=== PATIENT | female | born 1950 | race Caucasian/White ===

== ENCOUNTER → 2021-10-12 | Outpatient (CLI) | payer OTHER, MEDICARE ==
[~2021-10-12] MED LIST: Flomax0.4 MG PO; Norco 5-325 Ta1 EACH PO; Zofran Odt4 MG SL
[2021-10-12 14:09] LABS: BASOPHILS ABSOLUTE AUTO 0.07 K/mm3 (0.00-0.23); BASOPHILS PERCENT AUTO 1 % (0-2); EOSINOPHILS ABSOLUTE AUTO 0.11 K/mm3 (0.00-0.68); EOSINOPHILS PERCENT AUTO 2 % (0-6); Hemoglobin 13.7 g/dL (11.5-16.0); IMMATURE GRAN ABSOLUTE AUTO 0.02 K/mm3 (0.00-0.10); IMMATURE GRAN PERCENT AUTO 0 % (0-1); LYMPHOCYTES ABSOLUTE AUTO 1.64 K/mm3 (0.84-5.20); LYMPHOCYTES PERCENT AUTO 31 % (21-46); MONOCYTES ABSOLUTE AUTO 0.57 K/mm3 (0.16-1.47); MONOCYTES PERCENT AUTO 11 % (4-13); Mean Corpuscular HGB 28.3 pg (26.0-34.0); Mean Corpuscular HGB Conc 32.6 g/dL (31.5-36.5); Mean Corpuscular Volume 87 fL (80-100); Mean Platelet Volume 10.4 fL (9.1-12.4); NEUTROPHILS ABSOLUTE AUTO 2.96 K/mm3 (1.96-9.15); NEUTROPHILS PERCENT AUTO 55 % (41-73); Platelet Count 297 K/mm3 (150-400); RDW Coefficient Variation 13.3 % (11.7-14.2); RDW Standard Deviation 42.3 fL (35.1-46.3); Red Blood Cell Count 4.84 M/mm3 (3.80-5.20); White Blood Cell Count 5.37 K/mm3 (4.00-11.30)
[2021-10-12 14:24] LABS: Alanine Aminotransfer (ALT/SGP 48 U/L (12-78); Albumin, Blood 3.9 g/dL (3.4-5.0); Albumin/Globulin Ratio 1.2 (0.8-1.8); Alk Phos 120 U/L (40-126); Anion Gap 11 mmol/L (6-16); Aspartate Aminotrans (AST/SGOT 28 U/L (12-37); Bilirubin, Total 0.5 mg/dL (0.1-1.0); Blood Urea Nitrogen 16 mg/dL (8-24); Bun/Creatinine Ratio 23.2 (12.0-20.0); CO2, Blood 26 mmol/L (21-32); Calcium, Blood 8.8 mg/dL (8.5-10.1); Chloride, Blood 104 mmol/L (98-108); Creatinine, Blood 0.69 mg/dL (0.40-1.00); Globulin, Blood 3.3 g/dL (2.2-4.0); Glomerular Filtration Rate >60 (60-); Glucose, Blood 113 mg/dL (70-99); Potassium, Blood 4.2 mmol/L (3.5-5.5); Sodium, Blood 141 mmol/L (136-145); Total Protein, Blood 7.2 g/dL (6.4-8.2)
== END | disposition home or self-care (01) ==
LOC: LAB SHORT 14:05 → LAB 14:05
PROVIDERS: General Practice
DX: R05.9 Cough, unspecified (principal)
CPT/HCPCS: 80053; 85025

== ENCOUNTER 2023-07-28 23:27 | Emergency (ER) | payer MEDICARE ==
[~2023-07-28] VITALS: Ht 167.6 cm; Wt 99.8 kg
[2023-07-28 23:59] LABS: BASOPHILS ABSOLUTE AUTO 0.09 K/mm3 (0.00-0.23); BASOPHILS PERCENT AUTO 1 % (0-2); EOSINOPHILS ABSOLUTE AUTO 0.13 K/mm3 (0.00-0.68); EOSINOPHILS PERCENT AUTO 1 % (0-6); Hematocrit 43.8 % (33.0-51.0); IMMATURE GRAN ABSOLUTE AUTO 0.04 K/mm3 (0.00-0.10); IMMATURE GRAN PERCENT AUTO 0 % (0-1); LYMPHOCYTES ABSOLUTE AUTO 3.38 K/mm3 (0.84-5.20); LYMPHOCYTES PERCENT AUTO 37 % (21-46); MONOCYTES ABSOLUTE AUTO 0.82 K/mm3 (0.16-1.47); MONOCYTES PERCENT AUTO 9 % (4-13); Mean Corpuscular HGB 28.3 pg (26.0-34.0); Mean Corpuscular Volume 89 fL (80-100); Mean Platelet Volume 10.6 fL (9.1-12.4); NEUTROPHILS ABSOLUTE AUTO 4.71 K/mm3 (1.96-9.15); NEUTROPHILS PERCENT AUTO 51 % (41-73); Platelet Count 322 K/mm3 (150-400); RDW Coefficient Variation 13.6 % (11.7-14.2); RDW Standard Deviation 44.1 fL (35.1-46.3); Red Blood Cell Count 4.95 M/mm3 (3.80-5.20); White Blood Cell Count 9.17 K/mm3 (4.00-11.30)
[2023-07-29 00:15] LABS: Albumin, Blood 3.7 g/dL (3.4-5.0); Bilirubin, Total 0.5 mg/dL (0.1-1.0); Bun/Creatinine Ratio 36.2 (12.0-20.0); Calcium, Blood 9.4 mg/dL (8.5-10.1); Creatinine, Blood 0.72 mg/dL (0.40-1.00); Globulin, Blood 3.7 g/dL (2.2-4.0); Potassium, Blood 4.2 mmol/L (3.5-5.5); Total Protein, Blood 7.4 g/dL (6.4-8.2)
[2023-07-29 01:45] VITALS: BP 151/66
== END 2023-07-29 03:25 | disposition home or self-care (01) ==
LOC: ER 23:27
PROVIDERS: Emergency Medicine
DX: R00.2 Palpitations (principal); R73.9 Hyperglycemia, unspecified
CPT/HCPCS: 71046; 80053; 83880; 84484; 85025; 85379; 93005; 93010; 99284-25

== ENCOUNTER 2024-09-06 06:11 | Day surgery (SDC) | payer MEDICARE ==
[~2024-09-06] VITALS: Ht 167.6 cm; Wt 96.1 kg
[~2024-09-06 06:11] MED LIST changes: +Lactated Ringer's 1,000 ML IV ONE
[2024-09-06] MEDS ORDERED: CeFAZolin Sodium 2,000 MG VIAL ONE (06:20)
[2024-09-06] MEDS ORDERED: Acetaminophen 500 MG Tab ONE (06:20)
[2024-09-06] MEDS ORDERED: IBUP400 PO (06:38)
[2024-09-06] MEDS ORDERED: ACET500 PO (06:38)
[2024-09-06] MEDS ORDERED: Lactated Ringer's 1,000 ML IV ONE (06:43)
[2024-09-06] MEDS ORDERED: Chlorhexidine Mouth Care 15 ML UDC MT SCH (06:50)
[2024-09-06] MEDS ORDERED: Tranexamic Acid 100 ML IV ONE ×2 (07:01→10:28)
[2024-09-06] MEDS ORDERED: OxyCODONE HCL 10 MG TABCR ONE (07:15)
[2024-09-06] MEDS ORDERED: Midazolam HCl 1MG / ML 2ML Vial ONE (07:17)
[2024-09-06] MEDS ORDERED: EPINEPhrine HCl 1 MG/ML 1ML Amp ONE (07:17)
[2024-09-06] MEDS ORDERED: Etomidate 2MG / ML 10ML Vial ONE (07:31)
[2024-09-06] MEDS ORDERED: FentaNYL Citrate 50 MCG/ML 2 ML Injection ONE (07:34)
[2024-09-06] MEDS ORDERED: Ondansetron HCl 2 MG / ML 2ML Vial ONE ×2 (07:50→10:34)
[2024-09-06] MEDS ORDERED: Phenylephrine HCl 10mg/ml 1 ml Vial ONE (07:50)
[2024-09-06] MEDS ORDERED: Dexamethasone Sod Phos 10 MG/ML 1ML VIAL ONE (07:50)
[2024-09-06] MEDS ORDERED: Sugammadex Sodium 200 MG/2ML SDV (100 MG/ML) ONE (09:47)
[2024-09-06] MEDS ORDERED: SuccINYLCHOLINE Chloride 100 MG/5 ML 5MLSYR ONE (09:49)
[2024-09-06] MEDS ORDERED: Rocuronium Bromide 10 MG/ML 5ML Injection IV ONE (09:49)
[2024-09-06] MEDS ORDERED: Ketorolac Tromethamine 30mg Vial ONE (09:50)
--- NOTE | 2024-09-06 10:21 | NUR ---
09/06/24 1021 [place] O2 TRIAL OFF NRB AT 10L, [phone], PT MAINTAINING 94% O2 ON RA.
[2024-09-06 11:39] VITALS: BP 142/76
== END 2024-09-06 12:26 | disposition home or self-care (01) ==
LOC: ORSCSDS 06:11
PROVIDERS: Orthopaedic Surgery
PROC: 0RRK00Z Replacement of Left Shoulder Joint with Reverse Ball and Socket Synthetic Substitute, Open Approach (ICD-10-PCS; principal; 2024-09-06 07:30)
DX: M19.012 Primary osteoarthritis, left shoulder (principal); Z79.899 Other long term (current) drug therapy
CPT/HCPCS: 73030; A9270; C1713; C1776; J0171; J0330; J0690; J1100; J1885; J2250; J2371; J2405; J3010; J7120

== ENCOUNTER → 2025-05-24 | Outpatient (CLI) | payer MEDICARE ==
[~2025-05-24] MED LIST changes: +ACET500 PO; +IBUP400 PO; -Lactated Ringer's 1,000 ML IV ONE
== END ==
LOC: LAB SHORT 18:35 → LAB 18:35
DX: R30.0 Dysuria (principal)
CPT/HCPCS: 87077; 87086; 87186

== ENCOUNTER → 2025-06-19 | Outpatient (CLI) | payer MEDICARE | LOC: LAB SHORT 13:19 → LAB 13:19 | DX: R30.0 Dysuria (principal) | CPT/HCPCS: 87086 ==